=== PATIENT | male | born 1995 | race Hispanic/Latino ===

== ENCOUNTER 2016-09-20 06:22 | Emergency (ER) | payer MEDICAID ==
[~2016-09-20] VITALS: Ht 180.3 cm; Wt 120.4 kg
[~2016-09-20 06:22] MED LIST: NAPROSYN500 MG PO; TAM75CAP PO
[2016-09-20 07:10] LABS: INFLUENZA A NONE DETECTED (NONE DETECT); INFLUENZA B NONE DETECTED (NONE DETECT)
[2016-09-20] MEDS ORDERED: PENICILLN VK500 MG PO (07:16)
[2016-09-20] MEDS ORDERED: IMODIUM2 MG PO (07:16)
[2016-09-20] MEDS ORDERED: ZOFRAN4 MG/TAB PO (07:16)
[2016-09-20 07:21] VITALS: BP 134/84
== END 2016-09-20 07:29 | disposition home or self-care (01) | DRG 153 ==
LOC: ED 06:22
PROVIDERS: Emergency Medicine
DX: J02.0 Streptococcal pharyngitis (principal); R50.9 Fever, unspecified; R19.7 Diarrhea, unspecified

== ENCOUNTER 2017-11-27 19:03 | Emergency (ER) | payer SELFPAY ==
[~2017-11-27] VITALS: Ht 180.3 cm; Wt 102.0 kg
[~2017-11-27 19:03] MED LIST changes: +IMODIUM2 MG PO; +PENICILLN VK500 MG PO; +ZOFRAN4 MG/TAB PO
[2017-11-27] MEDS ORDERED: AUGMENTIN875TAB PO (19:38)
[2017-11-27 19:39] VITALS: BP 135/77
== END 2017-11-27 19:45 | disposition home or self-care (01) | DRG 153 ==
LOC: ED 19:03
DX: J03.90 Acute tonsillitis, unspecified (principal)